=== PATIENT | female | born 1950 | race Two or more races ===

== ENCOUNTER 2023-11-23 14:59 | Inpatient (IN) | payer MEDICARE, OTHER ==
[~2023-11-23] VITALS: Ht 160 cm; Wt 97.9 kg
--- NOTE | 2023-11-23 15:07 | ECG ---
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
--- NOTE | 2023-11-23 15:12 | ED.PDOC ---
HPI Comments HPI: Poor Historian. 73-year-old female presents to emergency department for midsternal chest pain constant that started at 2:00 a.m. today. It is associated with some nonspecific nonproductive cough and some nausea and some shortness of breath. Past Medcial History: Hypertension, hyperlipidemia Past Surgical History: Tonsillectomy, cholecystectomy, appendectomy, hernia repair REVIEW OF SYSTEMS: CONSTITUTIONAL: Denies acute: fever, diaphoresis, chills, HEAD: Denies acute: headache, photophobia Eyes: Denies acute: Double vision, vision loss, eye pain, eye discharge. EARS: Denies acute: tinnitus, hearing loss, ear discharge, ear pain, THROAT: Denies acute: sore throat, swelling, difficulty swallowing , pain with swallowing, change in voice. NECK: Denies acute: neck pain, neck swelling, stiff neck. HEART: Denies acute : palpitations, LUNGS: Denies acute: wheezing, hemoptysis ABDOMEN: Denies acute: abdominal pain, Nausea, Vomiting, diarrhea, melena , hematemesis, hematochezia SKIN: Denies acute: rash, redness, lesions, itchiness. EXTREMITIES: Denies acute: calf pain, numbness, tingling, weakness, denies pain in extremity. Denies acute: Low back pain. Neuro: Denies acute: focal neurological deficit, motor or sensory focal neurological deficit, tremors, seizure like activity, confusion, dizziness, change in mental status, loss of bowel or bladder function, cauda equina like symptoms. : Denies acute: dysuria, hematuria, flank pain, increase in urinary frequency. PSYCH: Denies acute: hallucination, suicidal ideation, homicidal ideation. FEMALE: Denies acute: abnormal vaginal bleeding, foul odor, unusual discharge. PHYSICAL EXAM: General: no acute distress, awake and alert. Head: normocephalic, atraumatic. Neck: supple, trachea is midline, no swelling. Throat: Normal phonation. Eyes:, no erythema, no purulent discharge, no proptosis, no icterus. Heart: regular rate, regular rhythm, no significant murmur appreciated. Lungs: no apparent respiratory distress, Able to speak in full sentences. No wheezing, no rhonchi, no crackles. No stridors Clear to auscultation bilaterally. Abdomen: non tender to palpation, non distended, soft, no guarding, no rebound, + bowel sounds. Presence of abdominal hernia reducible. Chronic. Neuro: Awake, Alert, oriented to name, self, situation, follows commands GCS=15. Speech is normal. Skin: no petechia, no purpura, no cyanosis, non-pale, not jaundice. Lower extremities: --no - Pitting edema no deformity, no focal swelling, no calf TTP. Makes eye contact. moves all four extremities. Face: no apparent facial droop. Ambulating in the ED independently. Chief Complaint: Chest Pain Time Seen by MD: 15:05 Reviewed Notes: Medications, Allergies Allergies: Coded Allergies: Penicillins (Verified Allergy, Unknown, 11/23/23) Home Meds Active Scripts Levofloxacin Hemihydrate (LEVAQUIN 500 MG) 500 Mg Tab, 500 MG PO DAILY for 7 Days, #7 TAB Prov:GLORIA RAUSCH RESIDENT 11/25/23 Reported Medications Fenofibrate (Fenofibrate) 54 Mg Tab, 1 TAB PO DAILY, #30 TAB 5 Refills 11/24/23 Atenolol (Atenolol) 25 Mg Tab, 1 TAB PO DAILY, #30 TAB 5 Refills 11/24/23 Atorvastatin Calcium (ATORVASTATIN CALCIUM) 10 Mg Tab, 1 TAB PO DAILY, #30 TAB 5 Refills 11/24/23 Fluoxetine HCl (Fluoxetine) 60 Mg Tab, 60 MG PO, TAB 11/24/23 Information Source: Patient Was a procedure done? Was a procedure done?: No CP Differential Dx Differential Diagnosis: N/A Differential Diagnosis: Other (Ddx include but not limitied to gastritis, musculoskeletal pain, radiculopathy, atypical chest pain, dissection, aneurysm, ACS, unstable angina, hiatal hernia, GERD, anxiety, costochondritis, PE, pneumothroax, neoplasm, cardiac ischemia, drug abuse, anemia.) X-Ray, Labs, Meds, VS Vital Signs Date Time Temp Pulse Resp B/P (MAP) Pulse Ox O2 Delivery O2 Flow Rate FiO2 11/23/23 16:06 61 11/23/23 15:12 98.0 71 18 127/73 (91) 97 11/23/23 15:05 67 Lab Test 11/23/23 19:25 11/23/23 16:25 11/23/23 15:13 Range/Units Troponin I High Sensitivity 3 L 4 4 </=34 ng/L Triglycerides Level 176 H < 150 mg/dL Cholesterol Level 200 H < 200 mg/dL LDL Cholesterol 123 H < 100 mg/dL HDL Cholesterol 53 40-59 mg/dL Thyroid Stimulating Hormone (TSH) 1.31 0.55-4.78 uIU/mL White Blood Count 4.7 4.4-10.8 10^3/uL Red Blood Count 4.88 4.0-5.20 10^6/uL Hemoglobin 14.4 12.2-16.2 g/dL Hematocrit 41.8 36.0-46.0 % Mean Corpuscular Volume 85.5 80.0-100.0 fL Mean Corpuscular Hemoglobin 29.6 28.0-32.0 pg Mean Corpuscular Hemoglobin Concent 34.6 32.0-36.0 g/dL Red Cell Distribution Width 12.4 11.8-14.3 % Platelet Count 210 140-450 10^3/uL Mean Platelet Volume 8.0 6.9-10.8 fL Neutrophils (%) (Auto) 55.0 37.0-80.0 % Lymphocytes (%) (Auto) 34.3 10.0-50.0 % Monocytes (%) (Auto) 6.8 0.0-12.0 % Eosinophils (%) (Auto) 3.2 0.0-7.0 % Basophils (%) (Auto) 0.7 0.0-2.0 % Neutrophils # (Auto) 2.6 1.6-8.6 10 ^3/uL Lymphocytes # (Auto) 1.6 0.4-5.4 10 ^3/uL Monocytes # (Auto) 0.3 0-1.3 10 ^3/uL Eosinophils # (Auto) 0.2 0-0.8 10 ^3/uL Basophils # (Auto) 0 0-0.2 10 ^3/uL Nucleated Red Blood Cells 0.2 % Sodium Level 142 136-145 mmol/L Potassium Level 3.8 3.5-5.1 mmol/L Chloride Level 108 H 98-107 mmol/L Carbon Dioxide Level 26 20-31 mmol/L Anion Gap 8 5-15 Blood Urea Nitrogen 9 9-23 mg/dL Creatinine 0.82 0.550-1.02 mg/dL Glomerular Filtration Rate Calc 76 >90 mL/min BUN/Creatinine Ratio 11.0 10.0-20.0 Serum Glucose 116 H 74-106 mg/dL Calcium Level 10.3 8.7-10.4 mg/dL Total Bilirubin 0.7 0.2-1.0 mg/dL Aspartate Amino Transferase (AST) 32 13-40 U/L Alanine Aminotransferase (ALT) 31 7-40 U/L Alkaline Phosphatase 45 L 46-116 U/L B-Type Natriuretic Peptide 76.41 0-100 pg/mL Total Protein 7.1 5.7-8.2 g/dL Albumin 4.6 3.2-4.8 g/dL Free Thyroxine (T4) Calculated 1.00 0.89-1.76 ng/dL Free Triiodothyronine (T3) pg/mL 2.85 2.3-4.2 pg/mL [place] [address] Ph: [phone] DIAGNOSTIC IMAGING Diagnostic Imaging Report : [id number] Signed PATIENT: MARTELL MINA ACCT: [id number] UNIT: [id number] : 1950 LOC: ER ROOM / BED: / AGE / SEX: 73 / F ADM STATUS: REG ER SERVICE 1527 ORDERING PHYSICIAN: TEDDY KELLEY DO PROCEDURE(s): CXRP - CHEST PORTABLE REASON: CP ORDER NUMBER(s): [id number], ACCESSION NUMBER(s): [id number] CHEST RADIOGRAPH Indication:CP Technique: Single frontal view of the chest was obtained Comparison: None FINDINGS: Lines and Tubes: None Lungs: Right lower lobe infiltrate and atelectasis and possible small pleural effusion. Prominent interstitial markings right base may represent infiltrate or atelectasis.. Pleura: No effusion. No pneumothorax. Cardiomediastinal contours: Unremarkable Bones: No acute osseous abnormality. IMPRESSION: 1. Left lower lobe infiltrate and atelectasis and possible small effusion. Acute versus chronic disease can not be distinguished without comparison studies. 2. Possible developing infiltrate or atelectasis right base. HS:Y ATED BY: HARIKA DRAKE Jr., DO DICTATED DATE/TIME: 11/23/23 1551 SIGNED BY: HARIKA DRAKE Jr., DO SIGNED DATE/TIME: 11/23/23 1551 CC: [place] [address] Ph: [phone] DIAGNOSTIC IMAGING Diagnostic Imaging Report : [id number] Signed PATIENT: MARTELL MINA ACCT: [id number] UNIT: [id number] : 1950 LOC: [facility] ROOM / BED: [facility] / A AGE / SEX: 73 / F ADM STATUS: ADM IN SERVICE 1048 ORDERING PHYSICIAN: PHILIPPE MCLAIN RESIDENT PROCEDURE(s): CX2CT - CHEST WITHOUT CONTRAST REASON: suspected left lower lobe pneumonia vs atelectasis ORDER NUMBER(s): [id number], ACCESSION NUMBER(s): [id number] Procedure: CT CHEST WITHOUT CONTRAST Reason for study/Clinical History: suspected left lower lobe pneumonia vs atelectasis Comparison Study: None available at time of dictation. Exam Date: 11/24/2023 12:32 PM TECHNIQUE: Multidetector CT of the chest was performed from the lung apices to the upper abdomen without the use of intravenous contract. Axial, coronal and sagittal multiplanar reformats were performed. Radiation Dose Information: CT Dose: CTDI volume is 13.01 mGy. Dose-length product is 384.9 mGy*cm The dose indicators for CT are the volume Computed Tomography (CT) Dose Index (CTDIvol) and the Dose Length Product (DLP), and are measured in units of mGy and mGy-cm, respectively. These indicators are not patient dose, but values generated from the CT scanner acquisition factors. The report includes radiation exposure data for exposures received during this examination. FINDINGS: Lower neck: Enlarged right and left lobes of the thyroid with calcifications. Further evaluation may be obtained with thyroid ultrasound. Lungs: Infiltrate left posterior costophrenic angle. Heart/Vascular Structures: Normal heart size. No pericardial effusion. Coronary artery calcifications Lymph Nodes: No adenopathy Pleura: No pleural effusion or significant pneumothorax. Musculoskeletal: No acute osseous abnormality. Soft tissues: Normal. Upper abdomen: Limited portions of the upper abdomen are unremarkable. IMPRESSION: 1. Airspace disease and atelectasis left posterior costophrenic angle. 2. Enlarged right and left lobes of the thyroid with calcifications recommend further evaluation with thyroid ultrasound. HS:Y Radiation optimization: All CT scans at this facility use at least one of these dose optimization techniques: automated exposure control mA and/or kV adjustment per patient size (includes targeted exams where dose is matched to clinical indication) or iterative reconstruction. ATED BY: HARIKA DRAKE Jr., DO DICTATED DATE/TIME: 11/24/23 1259 SIGNED BY: HARIKA DRAKE Jr., SIGNED DATE/TIME: 11/24/23 1259 CC: Time of 1ST Reevaluation: 00:00 Reevaluation 1ST: Improved Patient Education/Counseling: Diagnosis, Treatment Family Education/Counseling: No Family Present Comments Patient presented with the above HPI.---cardiac/dyspnea---workup was initiated. patient was found with the above mentioned diagnosis. Patient was given: Nitroglycerin, aspirin, Rocephin Patient ED course and VS have been stabilized. Patient has been reassessed in the ED and remained in a stable condition. Patient has been observed in the ED adequate length of time to insure improvement/stability. patient was admitted to the medicine team for further evaluation and treatment of their presentation. All the reports of any imaging studies that were ordered by myself were reviewed by myself. Departure 1 Departure Time of Disposition: 18:26 Impression: Primary Impression: Chest pain Additional Impressions: Pneumonia Dyspnea Abnormal finding on CT scan Disposition: ADMITTED INPATIENT Admit to: Tele Condition: Guarded e-Prescriptions Levofloxacin Hemihydrate (LEVAQUIN 500 MG) 500 Mg Tab 500 MG PO DAILY for 7 Days, #7 TAB Prov: GLORIA RAUSCH RESIDENT 11/25/23 Discharged With: Self Critical Care Note Critical Care Time?: No Heart Score Heart Score: Heart Score Response (Comments) Value History Moderate Suspicious 1 EKG Normal 0 Age >65 2 Risk Factors 1 or 2 risk factors 1 Troponin Normal limit 0 Total 4 TEDDY KELLEY DO Nov 23, 2023 15:12
[2023-11-23 15:31] LABS: Basophils # (auto) 0 10 ^3/uL (0-0.2); Basophils % (auto) 0.7 % (0.0-2.0); Eosinophils # (auto) 0.2 10 ^3/uL (0-0.8); Eosinophils % (auto) 3.2 % (0.0-7.0); Hematocrit 41.8 % (36.0-46.0); Hemoglobin 14.4 g/dL (12.2-16.2); Lymphocytes # (auto) 1.6 10 ^3/uL (0.4-5.4); Lymphocytes % (auto) 34.3 % (10.0-50.0); Mean Corpuscular Hemoglobin 29.6 pg (28.0-32.0); Mean Corpuscular Hgb Conc. 34.6 g/dL (32.0-36.0); Mean Corpuscular Volume 85.5 fL (80.0-100.0); Monocytes # (auto) 0.3 10 ^3/uL (0-1.3); Monocytes % (auto) 6.8 % (0.0-12.0); Neutrophils # (auto) 2.6 10 ^3/uL (1.6-8.6); Nucleated Red Blood Cells % 0.2 %; Platelet Count (auto) 210 10^3/uL (140-450); Red Blood Cells 4.88 10^6/uL (4.0-5.20); Red Cell Distribution Width 12.4 % (11.8-14.3); White Blood Cell 4.7 10^3/uL (4.4-10.8)
[2023-11-23 15:47] LABS: Alanine Aminotransferase 31 U/L (7-40); Alkaline Phosphatase 45 U/L (46-116); Anion Gap 8 (5-15); Aspartate Aminotransferase 32 U/L (13-40); Blood Urea Nitrogen 9 mg/dL (9-23); Calcium 10.3 mg/dL (8.7-10.4); Carbon Dioxide 26 mmol/L (20-31); Chloride 108 mmol/L (98-107); Glucose 116 mg/dL (74-106); Potassium 3.8 mmol/L (3.5-5.1); Sodium 142 mmol/L (136-145)
[2023-11-23 15:48] LABS: Albumin 4.6 g/dL (3.2-4.8); Bilirubin, Total 0.7 mg/dL (0.2-1.0); Total Protein 7.1 g/dL (5.7-8.2)
--- NOTE | 2023-11-23 15:54 | DVH ---
CHEST RADIOGRAPH Indication:CP Technique: Single frontal view of the chest was obtained Comparison: None FINDINGS: Lines and Tubes: None Lungs: Right lower lobe infiltrate and atelectasis and possible small pleural effusion. Prominent int erstitial markings right base may represent infiltrate or atelectasis.. Pleura: No effusion. No pneumothorax. Cardiomediastinal contours: Unremarkable Bones: No acute osseous abnormality. IMPRESSION: 1. Left lower lobe infiltrate and atelectasis and possible small effusion. Acute versus chronic disea se can not be distinguished without comparison studies. 2. Possible developing infiltrate or atelectasis right base. HS:Y
--- NOTE | 2023-11-23 23:37 | DVHHPRES ---
History of Present Illness Resident Creating Document: OMAR OAKES RESIDENT Reason for Visit: palpitations History of Present Illness This is a 73-year-old female with a past medical history of hypertension and hyperlipidemia who presented to the ED today after experiencing chest pain, palpitation and dizziness. According to the patient, the incident started at 2pm in the afternoon. According to patient, she and her daughter were just getting reading to go for a game when the patient started having chest pains associated with palpitation. She described the chest pain as a pressure sensation localized to her sternum and non nonradiating. Also she complained on dizziness. Of note, patient mentioned that about 2 years ago she had severe palpitations for which she was on Holter monitor for week and the report was unremarkable. Patient also mentioned that she has lost about 70 lb with a course of 2 years this was intentional weight loss however. In the ED initial lab work were unremarkable, TSH, free T3 and free T4 were within normal limits. Chest x-ray, however, showed infiltrate or atelectasis at the lung basis. Past Medical History hypertension and hyperlipidemia Past Surgical History Tonsillectomy, cholecystectomy, appendectomy, hernia repair Family History Noncontributory Smoke: No ALCOHOL: none Review of Systems Constitutional: No: Fever, Chills, Sweats, Weakness, Malaise, Other Eyes: No: Pain, Vision change, Conjunctivae inflammation, Eyelid inflammation, Other, Redness ENT: No: Ear pain, Ear discharge, Nose pain, Nose discharge, Nose congestion, Mouth pain, Mouth swelling, Throat pain, Throat swelling, Other Respiratory: No: Cough, Dry, Shortness of breath, SOB with excertion, Wheezing, Hemoptysis, Pleuritic Pain, Sputum, Wheezing, Other Cardiovascular: Chest Pain, Palpitations; No: Orthopnea, Paroxysmal Noc. Dyspnea, Edema, Lt Headedness, Other Gastrointestinal: No: Nausea, Vomiting, Abdominal Pain, Diarrhea, Constipation, Melena, Hematochezia, Other Genitourinary: No Dysuria, No Frequency, No Incontinence, No Hematuria, No Retention, No Other Musculoskeletal: No: other, neck pain, shoulder pain, arm pain, back pain, hand pain, leg pain, foot pain Skin: No: Rash, Lesions, Jaundice, Bruising, Other Neurological: No: Weakness, Numbness, Incoordination, Change in speech, Confusion, Seizures, Other Allergies: Coded Allergies: Penicillins (Verified Allergy, Unknown, 11/23/23) Exam Vital Signs Vital Signs Date Time Temp Pulse Resp B/P (MAP) Pulse Ox O2 Delivery O2 Flow Rate FiO2 11/23/23 16:06 61 11/23/23 15:12 98.0 18 127/73 (91) 97 General Appearance: Alert, Oriented X3, Cooperative, No acute distress HEENT: Atraumatic, PERRLA, EOMI, Mucous membr. moist/pink Respiratory: Clear to auscultation, Normal air movement Cardiovascular: Regular rate, Normal S1, Normal S2, No murmurs, Gallops, Rubs Abdominal: Normal bowel sounds Extremities: No clubbing, No cyanosis, No edema, Normal pulses, No tenderness/swelling Skin: No rashes, No breakdown, No significant lesion Neuro: Normal gait, Normal speech, Strength at 5/5 X4 ext, Normal tone, Sensation intact Psych/Mental Status: Mental status NL, Mood NL Labs/Xrays Labs Test 11/23/23 19:25 11/23/23 15:13 Range/Units Troponin I High Sensitivity 3 L </=34 ng/L White Blood Count 4.7 4.4-10.8 10^3/uL Red Blood Count 4.88 4.0-5.20 10^6/uL Hemoglobin 14.4 12.2-16.2 g/dL Hematocrit 41.8 36.0-46.0 % Mean Corpuscular Volume 85.5 80.0-100.0 fL Mean Corpuscular Hemoglobin 29.6 28.0-32.0 pg Mean Corpuscular Hemoglobin Concent 34.6 32.0-36.0 g/dL Red Cell Distribution Width 12.4 11.8-14.3 % Platelet Count 210 140-450 10^3/uL Mean Platelet Volume 8.0 6.9-10.8 fL Neutrophils (%) (Auto) 55.0 37.0-80.0 % Lymphocytes (%) (Auto) 34.3 10.0-50.0 % Monocytes (%) (Auto) 6.8 0.0-12.0 % Eosinophils (%) (Auto) 3.2 0.0-7.0 % Basophils (%) (Auto) 0.7 0.0-2.0 % Neutrophils # (Auto) 2.6 1.6-8.6 10 ^3/uL Lymphocytes # (Auto) 1.6 0.4-5.4 10 ^3/uL Monocytes # (Auto) 0.3 0-1.3 10 ^3/uL Eosinophils # (Auto) 0.2 0-0.8 10 ^3/uL Basophils # (Auto) 0 0-0.2 10 ^3/uL Nucleated Red Blood Cells 0.2 % Sodium Level 142 136-145 mmol/L Potassium Level 3.8 3.5-5.1 mmol/L Chloride Level 108 H 98-107 mmol/L Carbon Dioxide Level 26 20-31 mmol/L Anion Gap 8 5-15 Blood Urea Nitrogen 9 9-23 mg/dL Creatinine 0.82 0.550-1.02 mg/dL Glomerular Filtration Rate Calc 76 >90 mL/min BUN/Creatinine Ratio 11.0 10.0-20.0 Serum Glucose 116 H 74-106 mg/dL Calcium Level 10.3 8.7-10.4 mg/dL Total Bilirubin 0.7 0.2-1.0 mg/dL Aspartate Amino Transferase (AST) 32 13-40 U/L Alanine Aminotransferase (ALT) 31 7-40 U/L Alkaline Phosphatase 45 L 46-116 U/L B-Type Natriuretic Peptide 76.41 0-100 pg/mL Total Protein 7.1 5.7-8.2 g/dL Albumin 4.6 3.2-4.8 g/dL ORDERING PHYSICIAN: TEDDY KELLEY DO PROCEDURE(s): CXRP - CHEST PORTABLE REASON: CP ORDER NUMBER(s): [id number], ACCESSION NUMBER(s): [id number] CHEST RADIOGRAPH Indication:CP Technique: Single frontal view of the chest was obtained Comparison: None FINDINGS: Lines and Tubes: None Lungs: Right lower lobe infiltrate and atelectasis and possible small pleural effusion. Prominent interstitial markings right base may represent infiltrate or atelectasis.. Pleura: No effusion. No pneumothorax. Cardiomediastinal contours: Unremarkable Bones: No acute osseous abnormality. IMPRESSION: 1. Left lower lobe infiltrate and atelectasis and possible small effusion. Acute versus chronic disease can not be distinguished without comparison studies. 2. Possible developing infiltrate or atelectasis right base. HS:Y ATED BY: HARIKA DRAKE Jr., DO DICTATED DATE/TIME: 11/23/23 1551 Assessment/Plan Assessment/Plan Possible pneumonia left lung --> Ceftriaxone and azithromycin --> breathing treatment prn Recurrent palpitations --> TSH and free T3 and T4 : within normal limits Chest pain rule out ACS --> Troponin: negative --> BNP: 76 --> S/p Nitroglycerin and morphine --> Echo pending --> Consult Cardiology Hypertension -->Continue home medication Hyperlipidemia --> Continue home meds obesity --> BMI: 33.1 Care discussed for more than 25 minutes: Full code Case and plan discussed with Dr. Arrington Plan discussed with: Patient Date of Service: Nov 23, 2023 Billing Provider: MONIQUE ARRINGTON MD Common Visit Codes: 94871-[id number] INP/OBS CARE (HIGH) Secondary Visit Codes: 46782-[id number] CARE PLAN 30 MINUTES OMAR OAKES RESIDENT Nov 23, 2023 23:37 MONIQUE ARRINGTON MD Nov 24, 2023 17:00
[2023-11-23] MEDS: ASPirin 325 MG TAB PO ONE (23:45)
[2023-11-23] MEDS ORDERED: MORPHINE SULFATE INJ 2 MG/ml SYRG IV PRN (23:45)
[2023-11-23] MEDS ORDERED: NITROGLYCERIN 0.4 MG SL TAB SL PRN (23:45)
[2023-11-23] MEDS: NITROGLYCERIN 0.4 MG SL TAB SL ONE (23:46)
[2023-11-23 23:57] LABS: Free T3 2.85 pg/mL (2.3-4.2)
[2023-11-24] VITALS (11 sets, daily range): BP systolic 133–165; BP diastolic 49–69; PULSE 61–84; RESP 14–18; TEMP 97.5–99; O2SAT 95–98
[2023-11-24 00:12] LABS: Triglycerides 176 mg/dL (< 150)
[2023-11-24] MEDS: cefTRIAXone 1GM/50ML D5W 50 ML IV ONE ×2 (00:12→16:21)
[2023-11-24 00:13] LABS: LDL Cholesterol 123 mg/dL (< 100)
[2023-11-24 00:14] LABS: Cholesterol 200 mg/dL (< 200); HDL Cholesterol 53 mg/dL (40-59)
[2023-11-24] MEDS ORDERED: IPRATROPIUM BROM 0.5 MG/2.5ML INH SOL NEB PRN (05:00)
[2023-11-24] MEDS ORDERED: ALBUTEROL SULF 2.5 MG/0.5ML(0.5%) NEB SOLN NEB PRN (05:00)
[2023-11-24] MEDS ORDERED: ATOR10TA52 PO (05:52)
[2023-11-24] MEDS ORDERED: ATEN-60 PO (05:52)
[2023-11-24] MEDS ORDERED: FLUO60TA7 PO (05:52)
[2023-11-24] MEDS ORDERED: FENO54TA4 PO (05:52)
[2023-11-24] MEDS: hydrALAZINE HCL 20 MG/ML VL IV PRN (06:23)
--- NOTE | 2023-11-24 06:39 | ECG ---
[facility] Test Date: 2023-11-23 Test Time: 16:06:41 Pat Name: MARTELL MINA Department: er Room: 0249T A Gender: F Electronics Lead: bharati : 1950 Requested By: MACEY DAVILA Order Number: [id number] Reading MD: Pasquale Padgett Measurements Intervals [place] Rate: 61 P: 55 TN: 190 QRS: 16 QRSD: 102 T: 68 QT: 440 QTc: 444 Interpretive Statements Sinus rhythm Low voltage, precordial leads Electronically Signed On 11-29-2023 18:20:14 PDT by Pasquale Padgett Please click the below link to view image of tracing.
[2023-11-24] MEDS: LOSARTAN POTASSIUM 50 MG TAB PO ONE (09:30)
[2023-11-24] MEDS: AZITHROMYCIN 500MG/ 250ML 250 ML IV SCH (10:00)
[2023-11-24] MEDS: ONDANSETRON HCL 4 MG/2 ML VIAL IV PRN (12:27)
--- NOTE | 2023-11-24 13:01 | DVH ---
Procedure: CT CHEST WITHOUT CONTRAST Reason for study/Clinical History: suspected left lower lobe pneumonia vs atelectasis Comparison Study: None available at time of dictation. Exam Date: 11/24/2023 12:32 PM TECHNIQUE: Multidetector CT of the chest was performed from the lung apices to the upper abdomen with out the use of intravenous contract. Axial, coronal and sagittal multiplanar reformats were performed . Radiation Dose Information: CT Dose: CTDI volume is 13.01 mGy. Dose-length product is 384.9 mGy*cm The dose indicators for CT are the volume Computed Tomography (CT) Dose Index (CTDIvol) and the Dose Length Product (DLP), and are measured in units of mGy and mGy-cm, respectively. These indicators are not patient dose, but values generated from the CT scanner acquisition factors. The report includes radiation exposure data for exposures received during this examination. FINDINGS: Lower neck: Enlarged right and left lobes of the thyroid with calcifications. Further evaluation may be obtained with thyroid ultrasound. Lungs: Infiltrate left posterior costophrenic angle. Heart/Vascular Structures: Normal heart size. No pericardial effusion. Coronary artery calcifications Lymph Nodes: No adenopathy Pleura: No pleural effusion or significant pneumothorax. Musculoskeletal: No acute osseous abnormality. Soft tissues: Normal. Upper abdomen: Limited portions of the upper abdomen are unremarkable. IMPRESSION: 1. Airspace disease and atelectasis left posterior costophrenic angle. 2. Enlarged right and left lobes of the thyroid with calcifications recommend further evaluation with thyroid ultrasound. HS:Y Radiation optimization: All CT scans at this facility use at least one of these dose optimization cely hniques: automated exposure control mA and/or kV adjustment per patient size (includes targeted exam s where dose is matched to clinical indication) or iterative reconstruction.
--- NOTE | 2023-11-24 14:40 | DVHPNRES ---
Progress Note Date Seen: Nov 24, 2023 Resident Creating Document: PHILIPPE MCLAIN RESIDENT Medical Necessity Reason Pt with a Central, PICC or Fol: No Subjective Review of Systems Patient is a 73-year-old female with a past medical history of hypertension, hyperlipidemia came to the ED with a chief complaint of chest pain with the palpitations, dizziness for 1 day prior to admission. Patient reports that yesterday in the morning she had was having palpitations feeling like her heart was beating faster and with more force, irregularly sometimes fast and with a times slow associated with substernal chest pressure nonradiating without any exacerbating or relieving factors. Patient also reported feeling dizzy during the episode but did not lose consciousness. Patient has been experiencing similar episode of palpitations since the past 2 years. Patient was examined 2 years ago with a Holter monitor for 1 week and the readings were unremarkable. Patient also reports 70 lb intentional weight loss over 2 years. Patient reports since the past 2-3 months she has had increasing episodes of palpitations which last about 15-20 minutes. Patient does not report of any fever, chills, abdominal pain, nausea, vomiting, diarrhea. Initial labs show CBC within normal limits and BNP showing sodium, potassium, BUN, GFR, creatinine with the lower limits. Past medical history: hypertension, hyperlipidemia Past surgical history: Tonsillectomy, cholecystectomy, appendectomy, hernia repair Social: Denies smoking, alcohol, drug use. Review of systems Patient is seen at the bedside. Patient is alert and oriented to time, place and person. Patient's blood pressure per 153/69 mmHg, heart rate 70-80 per minute regular with a PVCs seen on the telemonitor, SpO2 97% on room air. Patient reported feeling nauseous with dry heaving. Patient does not report any shortness of breath, chest pain, dizziness. Patient's chest x-ray shows left lower lobe infiltrate and atelectasis and possible small effusion Objective vital signs Vital Sign Date Time Temp Pulse Resp B/P (MAP) Pulse Ox O2 Delivery O2 Flow Rate FiO2 11/24/23 10:00 95 Room Air* 0 21 11/24/23 09:30 140/59 11/24/23 09:25 97.5 77 18 97.5 Total Intake and Output 11/23/23 11/23/23 11/24/23 14:59 22:59 06:59 Intake Total 50 ml Balance 50 ml medications Current Medications Medications Dose Ordered Sig/Félix Route Start Time Stop Time Status Last Admin Dose Admin Nitroglycerin 0.4 mg Q5MINP PRN SL 11/23/23 23:45 Morphine Sulfate 2 mg Q30M PRN IV 11/23/23 23:45 Azithromycin 250 ml @ 125 mls/hr DAILY IV 11/24/23 10:00 11/24/23 10:00 125 MLS/HR Ceftriaxone Sodium 50 ml @ 100 mls/hr DAILY@0000 IV 11/25/23 00:00 Albuterol 2.5 mg Q4HPRN PRN NEB 11/24/23 05:00 Ipratropium [place] 0.5 mg Q4HPRN PRN NEB 11/24/23 05:00 Hydralazine HCl 10 mg Q6HP PRN IV 11/24/23 05:00 11/24/23 06:23 10 MG Ondansetron HCl 4 mg Q6HPRN PRN IV 11/24/23 11:00 11/24/23 12:27 4 MG Atenolol 50 mg DAILY PO 11/25/23 10:00 Examination Physical Examination Gen - no pallor, no icterus, no cyanosis, no clubbing, no LAD, no edema . Skin - Patients skin is warm and dry. reddish lesions with irrelugar well defined borders seen on the trunk and back. HEENT - normocephalic, atraumatic, moist mucous membranes. Neck - full ROM, no LAD, no JVD Pulmonary - B/L vesicular breath sounds. no crackles , no wheezing, no stridor. cardiovascular - normal S1,S2 heard. no murmurs heard. peripheral pulses normal radial 2+, pedal 2+. capillary refill normal <2 secs. GI - soft abdomen without tenderness to palpation. Ventral and umbilical hernia present. no hepatospleenomegaly. Neurological - Patient is A/O X 3 . Bilateral upper extremity strength 5/5, bilateral lower extremity strength 5/5, no facial droop, normal speech, no tremor, no sensory deficiets. laboratory and microbiology Laboratory Tests 11/23/23 15:13 Test 11/23/23 15:13 Range/Units Serum Glucose 116 H 74-106 mg/dL Problem List/Assessment/Plan Problem List/Assessment/Plan Assessment and Plan # Palpitations likely PVCs - ECG shows sinus rhythm - telemonitor shows occasional PVCs likely ventricular bigeminy - no evidence of arrhythmia on telemetry - patient is on atenolol 50 mg once daily # Possible community acquired pneumonia likely d/t gram+/- bacteria - Left lower lobe fine crackles heard -Chest X ray shows Left lower lobe infiltrate and atelectasis and possible small effusion - Chest CT shows Airspace disease and atelectasis left posterior costophrenic angle - Patient is currently on ceftriaxone 1g IV daily and Azithromycin 500mg IV daily - on room at SpO2 98% # Hypertensive heart disease - once dose of losartan 50mg given - patient is on 25mg atenolol once daily # Hyperlipidemia - elevated triglycerides 176, total cholestrol 200, LDL- 123 - patient started on atorvastatin 40mg Goals of care discussed with the patient for over 20 minutes. Full code. Plan discussed with . Plan discussed with: Patient My Orders My Orders Orders - PHILIPPE MCLAIN Procedure Category Date Status Time Ondansetron Hcl PHA 11/24/23 In Process (Zofran) 11:[address] 11/24/23 Resulted 10:48 Atenolol Tablet PHA 11/24/23 In Process (Tenormin Tablet) 15:00 Atenolol Tablet PHA 11/25/23 In Process (Tenormin Tablet) 10:00 Date of Service: Nov 24, 2023 Billing Provider: ROMULO HELLER MD Common Visit Codes: [id number] INP/OBS CARE(HIGH) PHILIPPE MCLAIN RESIDENT Nov 24, 2023 14:40 ROMULO HELLER MD Nov 24, 2023 20:54
[2023-11-24] MEDS: ATENOLOL 25 MG TAB PO ONE (15:25)
[2023-11-25] VITALS (9 sets, daily range): BP systolic 136–156; BP diastolic 42–59; PULSE 57–78; RESP 16–17; TEMP 98–99.3; O2SAT 95–98
[2023-11-25] MEDS ORDERED: cefTRIAXone 1GM/50ML D5W 50 ML IV SCH
[2023-11-25 06:27] LABS: Basophils # (auto) 0 10 ^3/uL (0-0.2); Basophils % (auto) 0.5 % (0.0-2.0); Eosinophils # (auto) 0.1 10 ^3/uL (0-0.8); Eosinophils % (auto) 2.1 % (0.0-7.0); Hematocrit 37.3 % (36.0-46.0); Lymphocytes # (auto) 2.6 10 ^3/uL (0.4-5.4); Lymphocytes % (auto) 37.6 % (10.0-50.0); Mean Corpuscular Hemoglobin 29.8 pg (28.0-32.0); Mean Corpuscular Hgb Conc. 34.8 g/dL (32.0-36.0); Mean Corpuscular Volume 85.6 fL (80.0-100.0); Monocytes # (auto) 0.6 10 ^3/uL (0-1.3); Monocytes % (auto) 8.4 % (0.0-12.0); Neutrophils # (auto) 3.6 10 ^3/uL (1.6-8.6); Neutrophils % (auto) 51.4 % (37.0-80.0); Nucleated Red Blood Cells % 0.1 %; Platelet Count (auto) 190 10^3/uL (140-450); Red Blood Cells 4.36 10^6/uL (4.0-5.20); Red Cell Distribution Width 12.7 % (11.8-14.3); White Blood Cell 6.9 10^3/uL (4.4-10.8)
--- NOTE | 2023-11-25 06:37 | DVH ---
ULTRASOUND SOFT TISSUE HEAD AND NECK CLINICAL INDICATION: Thyroid nodules TECHNIQUE: Multiple real time sonographic images of the thyroid were obtained. Comparison: None FINDINGS: The right thyroid gland measures 3.8 x 2.0 x 1.7 cm. The left thyroid gland measures approximately 4.0 x 1.9 x 2.3 cm. The isthmus measures 0.3 cm. Diffusely heterogeneous thyroid gland. Multiple hypoechoic TR 4 nodules measuring up to 1.6 cm in the right lower pole and 0.9 cm on the lef t midpole. IMPRESSION: TR 4 nodule in the right lower pole measures 1.6 cm and meets criteria for nonemergent FNA if clinica lly indicated. [employer] TI-RADS Categories and Recommendations (2017): TR1: 0 points, Benign, No FNA TR2: 2 points, Not suspicious, No FNA TR3: 3 points, Mildly suspicious, FNA if > or = 2.5 cm, Follow if > or = 1.5 cm TR4: 4-6 points, Moderately Suspicious, FNA if > or = 1.5 cm, Follow if > or = 1.0 cm TR5: 7+ points, Highly Suspicious, FNA if > or = 1.0 cm, Follow if > or = 0.5 cm Follow-up ultrasound guidelines: TR5: yearly for 5 years, if no growth or change in TI-RADS level TR4: at 1, 2, 3 and 5 years, if no growth or change in TI-RADS level TR3: at 1, 3 and 5 years, if no growth or change in TI-RADS level If increased but below threshold for FNA, repeat in one year. Source: ACR Thyroid Imaging, Reporting and Data System (TI-RADS): White Paper of the ACR TI-RADS Committee. Herman et al., J Am Ro[employer]io Radiol 2017;14:587-595.
[2023-11-25 06:38] LABS: Anion Gap 7 (5-15); Carbon Dioxide 26 mmol/L (20-31); Chloride 108 mmol/L (98-107); Potassium 3.7 mmol/L (3.5-5.1); Sodium 141 mmol/L (136-145)
[2023-11-25 06:39] LABS: Calcium 9.7 mg/dL (8.7-10.4)
[2023-11-25 06:44] LABS: BUN/Creatinine Ratio 11.9 (10.0-20.0); Blood Urea Nitrogen 10 mg/dL (9-23); Glucose 112 mg/dL (74-106)
[2023-11-25] MEDS: cefTRIAXone 1GM/50ML D5W 50 ML IV SCH (09:34)
[2023-11-25] MEDS: ATENOLOL 25 MG TAB PO SCH (09:37)
[2023-11-25 09:50] LABS: Rapid Influenza A Negative (Negative); Rapid Influenza B Negative (Negative)
[2023-11-25] MEDS ORDERED: ATENOLOL 25 MG TAB PO SCH (10:00)
[2023-11-25] MEDS ORDERED: LEVO500T91 PO (12:20)
--- NOTE | 2023-11-25 12:37 | DVHDSRES ---
Discharge Summary Date of Admission Resident Creating Document: GLORIA RAUSCH RESIDENT Nov 23, 2023 at 23:36 Date of Discharge: Nov 25, 2023 Admitting Diagnosis Chest pain Labs/Diagnostic Data: Laboratory Results Test 11/25/23 06:00 11/25/23 05:40 11/24/23 09:05 11/23/23 19:25 Influenza Type A Antigen Negative (Negative) Influenza Type B Antigen Negative (Negative) White Blood Count 6.9 10^3/uL (4.4-10.8) Red Blood Count 4.36 10^6/uL (4.0-5.20) Hemoglobin 13.0 g/dL (12.2-16.2) Hematocrit 37.3 % (36.0-46.0) Mean Corpuscular Volume 85.6 fL (80.0-100.0) Mean Corpuscular Hemoglobin 29.8 pg (28.0-32.0) Mean Corpuscular Hemoglobin Concent 34.8 g/dL (32.0-36.0) Red Cell Distribution Width 12.7 % (11.8-14.3) Platelet Count 190 10^3/uL (140-450) Mean Platelet Volume 8.5 fL (6.9-10.8) Neutrophils (%) (Auto) 51.4 % (37.0-80.0) Lymphocytes (%) (Auto) 37.6 % (10.0-50.0) Monocytes (%) (Auto) 8.4 % (0.0-12.0) Eosinophils (%) (Auto) 2.1 % (0.0-7.0) Basophils (%) (Auto) 0.5 % (0.0-2.0) Neutrophils # (Auto) 3.6 10 ^3/uL (1.6-8.6) Lymphocytes # (Auto) 2.6 10 ^3/uL (0.4-5.4) Monocytes # (Auto) 0.6 10 ^3/uL (0-1.3) Eosinophils # (Auto) 0.1 10 ^3/uL (0-0.8) Basophils # (Auto) 0 10 ^3/uL (0-0.2) Nucleated Red Blood Cells 0.1 % Sodium Level 141 mmol/L (136-145) Potassium Level 3.7 mmol/L (3.5-5.1) Chloride Level 108 mmol/L (98-107) Carbon Dioxide Level 26 mmol/L (20-31) Anion Gap 7 (5-15) Blood Urea Nitrogen 10 mg/dL (9-23) Creatinine 0.84 mg/dL (0.550-1.02) Glomerular Filtration Rate Calc 74 mL/min (>90) BUN/Creatinine Ratio 11.9 (10.0-20.0) Serum Glucose 112 mg/dL (74-106) Calcium Level 9.7 mg/dL (8.7-10.4) POC Glucose 163 mg/dl (70-106) Troponin I High Sensitivity 3 ng/L (</=34) Triglycerides Level 176 mg/dL (< 150) Cholesterol Level 200 mg/dL (< 200) LDL Cholesterol 123 mg/dL (< 100) HDL Cholesterol 53 mg/dL (40-59) Thyroid Stimulating Hormone (TSH) 1.31 uIU/mL (0.55-4.78) Test 11/23/23 15:13 Total Bilirubin 0.7 mg/dL (0.2-1.0) Aspartate Amino Transferase (AST) 32 U/L (13-40) Alanine Aminotransferase (ALT) 31 U/L (7-40) Alkaline Phosphatase 45 U/L (46-116) B-Type Natriuretic Peptide 76.41 pg/mL (0-100) Total Protein 7.1 g/dL (5.7-8.2) Albumin 4.6 g/dL (3.2-4.8) Free Thyroxine (T4) Calculated 1.00 ng/dL (0.89-1.76) Free Triiodothyronine (T3) pg/mL 2.85 pg/mL (2.3-4.2) Other Laboratory Tests 11/25/23 05:40 Brief Hx & Hospital Course: Patient is a 73-year-old female with a past medical history of hypertension, hyperlipidemia came to the ED with a chief complaint of chest pain with the palpitations, dizziness for 1 day prior to admission. Patient reports that yesterday in the morning she had was having palpitations feeling like her heart was beating faster and with more force, irregularly sometimes fast and with a times slow associated with substernal chest pressure nonradiating without any exacerbating or relieving factors. Patient also reported feeling dizzy during the episode but did not lose consciousness. Patient has been experiencing similar episode of palpitations since the past 2 years. Patient was examined 2 years ago with a Holter monitor for 1 week and the readings were unremarkable. Patient also reports 70 lb intentional weight loss over 2 years. Patient reports since the past 2-3 months she has had increasing episodes of palpitations which last about 15-20 minutes. Patient does not report of any fever, chills, abdominal pain, nausea, vomiting, diarrhea. Initial labs show CBC within normal limits and BNP showing sodium, potassium, BUN, GFR, creatinine with the lower limits. Patient is alert and oriented to time, place and person. Patient does not report any shortness of breath, chest pain, dizziness. Patient's chest x-ray shows left lower lobe infiltrate and atelectasis and possible small effusion. Patient has diagnosed with pneumonia started antibiotics. Today patient is feeling better, patient is going to begin discharged home with Levaquin 500 mg daily for seven days, CT and thyroid ultrasound shows thyroid mass, recommended patient to follow up with PCP for referral to do biopsy of thyroid. GENERAL: Not in acute distress. HEENT: EOMI, Moist mucous membranes. No scleral icterus. No cervical lymphadenopathy. LUNGS: Clear to auscultation bilaterally. No accessory muscle use. CARDIOVASCULAR: Regular rate and rhythm. No murmur. No JVD. ABDOMEN: Soft, nontender and nondistended. No palpable masses. EXTREMITIES: No edema. Nontender. SKIN: No rashes or lesions. Warm. NEUROLOGIC: Alert and oriented X3 Condition at Discharge: Stable Final Diagnosis/Problems List # Palpitations likely PVCs likely due to Pneumonia # Possible community acquired pneumonia likely d/t gram+/- bacteria, # Hypertensive heart disease # Hyperlipidemia # Thyroid mass, Enlarged right and left lobes of the thyroid with calcifications, Discharge Disposition: Home SNF Discharge Will this Physician continue t: No Discharge Instruct/Medications Diet: Cardiac 2g Na,low cholest Activity: No Restrictions, As Tolerated Follow Up/Referral: Follow up with PCP in 1-2 weeks, recommend referral for thyroid biopsy. Medications: Levaquin 500 mg daily X seven days Resume home medications Discharge Statement: "Patient was advised to return to the ER or call 911 if any headaches, dizziness, shortness of breath, chest pain, abdominal pain, bleeding, fevers, or worsening of medical condition. Patient was counseled about treatment plan, medications, possible side effects, patientverbalized understanding. All questions were answered to the best of my ability. This discharge took greater then 30 minutes in planning, reviewing documentation, counseling the patient, and discussing with other team members." ASSESSMENT ASSESSMENT Assessment # Palpitations likely PVCs likely due to Pneumonia # Possible community acquired pneumonia likely d/t gram+/- bacteria, # Hypertensive heart disease # Hyperlipidemia # Thyroid mass, Enlarged right and left lobes of the thyroid with calcifications, Date of Service: Nov 25, 2023 Billing Provider: ROMULO HELLER MD Common Visit Codes: 98534-BYH/OBS DISCH DAY <30MIN GLORIA RAUSCH RESIDENT Nov 25, 2023 12:37 ROMULO HELLER MD Nov 25, 2023 20:45
== END 2023-11-25 16:00 | disposition home or self-care (01) | DRG 179 ==
LOC: ER 15:04 → TELE 23:36 → TELE-EAST 11-24 04:54
PROVIDERS: ADMIT Internal Medicine; ATTEND Internal Medicine
DX: J15.69 Pneumonia due to other Gram-negative bacteria (principal); I10 Essential (primary) hypertension; J15.9 Unspecified bacterial pneumonia; E78.5 Hyperlipidemia, unspecified; E66.9 Obesity, unspecified; I11.9 Hypertensive heart disease without heart failure; I49.3 Ventricular premature depolarization; Z90.49 Acquired absence of other specified parts of digestive tract; Z68.33 Body mass index [BMI] 33.0-33.9, adult
CPT/HCPCS: 36415; 71045; 71250; 76536; 80048; 80053; 80061; 82962; 83880; 84439; 84443; 84481; 84484; 85025; 87804; 93005; G0378; J2405